=== PATIENT | male | born 1975 | race Caucasian/White ===

== ENCOUNTER 2023-03-06 09:45 | Day surgery (SDC) | payer BC, SELFPAY ==
[2023-03-06 09:53] VITALS: BMI 38.6
[2023-03-06 09:56] VITALS: BP 121/76; PULSE 79; RESP 18; TEMP 37.2; O2SAT 96
[2023-03-06] MEDS: Lactated Ringers 1,000 ML 100 ML IVCONT (10:19)
--- NOTE | 2023-03-06 10:23 | HO.ANESPROP2 ---
Documented by User: Elle Rosales NP 03/05/23 14:56 HPI - Anesthesia Eval Consult details Narrative: 47yo F for Bilateral medial Rectus Eye Muscle Recession PCP cleared [facility] Past Medical History Medical History Anxiety Chronic headache Diplopia Dyslipidemia Herpes labialis HTN (hypertension) [id number] transgender person Scoliosis Urethral stricture Vertigo Surgical History Surgical History (Updated 03/05/23 @ 12:39 by Farrah Vann RN) History of repair of hiatal hernia Social History Social History Patient Tobacco Use Status: Never used Tobacco Use of substances other than those prescribed or required for medical reasons: No Are you DNR?: No Advance Directives: No Advance Directives Information Provided: Yes Meds Allergies Allergy/AdvReac Type Severity Reaction Status Date / Time No Known Allergies Allergy Verified 03/05/23 12:36 Home Medications Medication Instructions Recorded Confirmed Last Taken Type albuterol sulfate 90 mcg/actuation 1 puff inhalation Q6H PRN wheezing 03/05/23 03/05/23 Unknown History aerosol inhaler alprazolam 0.5 mg tablet 0.5 mg PO BID 03/05/23 03/05/23 Unknown History atorvastatin 20 mg tablet 20 mg PO DAILY 03/05/23 03/05/23 Unknown History butalbital 50 mg-acetaminophen 325 1 cap PO Q4H PRN headache 03/05/23 03/05/23 Unknown History mg-caffeine 40 mg-codeine 30 mg cap diltiazem HCl 180 mg 180 mg PO DAILY 03/05/23 03/05/23 Unknown History capsule,extended release 24 hr estradiol valerate 40 mg/mL 8 mg IM QWEEK 03/05/23 03/05/23 Unknown History intramuscular oil insulin syringe-needle U-100 1 mL 03/05/23 03/05/23 Unknown History 25 x 1 (BD Insulin Syringe) lidocaine 5 % topical patch patch topical 03/05/23 Unknown History lidocaine-prilocaine 2.5 %-2.5 % topical Q2H PRN Pain 03/05/23 Unknown History topical cream lisinopril 10 mg tablet 10 mg PO DAILY 03/05/23 03/05/23 Unknown History needle (disp) 18 G 18 gauge x 1 03/05/23 03/05/23 Unknown History (BD Regular [place]vel [place]) omeprazole 40 mg capsule,delayed 40 mg PO BID 03/05/23 03/05/23 Unknown History release phenazopyridine 200 mg tablet 200 mg PO TID 03/05/23 03/05/23 Unknown History semaglutide (weight loss) 0.25 0.25 mg subcut QWEEK 03/05/23 03/05/23 Unknown History mg/0.5 mL subcutaneous pen injector (Wegovy) semaglutide (weight loss) 0.5 0.5 mg subcut QWEEK 03/05/23 03/05/23 Unknown History mg/0.5 mL subcutaneous pen injector (Wegovy) syringe with needle 1 mL 20 gauge 03/05/23 03/05/23 Unknown History x 1 (BD Luer-Joe Syringe) tamsulosin 0.4 mg capsule 0.4 mg PO DAILY 03/05/23 03/05/23 Unknown History valacyclovir 1 gram tablet 2,000 mg PO BID 03/05/23 03/05/23 Unknown History Exam Exam Date and Time: March 05, 2023 1453 Assessment and Plan Assessment Anesthesia Assessment: Chart Reviewed Documented by User: Agata Nguyễn DO 03/06/23 10:25 [facility] Past Medical History Medical History Anxiety Chronic headache Diplopia Dyslipidemia Herpes labialis HTN (hypertension) [id number] transgender person Scoliosis Urethral stricture Vertigo Family History Family history of problems with anesthesia: No Surgical History Surgical History (Updated 03/05/23 @ 12:39 by Farrah Vann RN) History of repair of hiatal hernia History of Problems with Anesthesia: No Social History Social History Patient Tobacco Use Status: Never used Tobacco Use of substances other than those prescribed or required for medical reasons: No Are you DNR?: No Advance Directives: No Advance Directives Information Provided: Yes Meds Allergies Allergy/AdvReac Type Severity Reaction Status Date / Time No Known Allergies Allergy Verified 03/05/23 12:36 Home Medications Medication Instructions Recorded Confirmed Last Taken Type albuterol sulfate 90 mcg/actuation 1 puff inhalation Q6H PRN wheezing 03/05/23 03/05/23 Unknown History aerosol inhaler alprazolam 0.5 mg tablet 0.5 mg PO BID 03/05/23 03/05/23 Unknown History atorvastatin 20 mg tablet 20 mg PO DAILY 03/05/23 03/05/23 Unknown History butalbital 50 mg-acetaminophen 325 1 cap PO Q4H PRN headache 03/05/23 03/05/23 Unknown History mg-caffeine 40 mg-codeine 30 mg cap diltiazem HCl 180 mg 180 mg PO DAILY 03/05/23 03/05/23 Unknown History capsule,extended release 24 hr estradiol valerate 40 mg/mL 8 mg IM QWEEK 03/05/23 03/05/23 Unknown History intramuscular oil insulin syringe-needle U-100 1 mL 03/05/23 03/05/23 Unknown History 25 x 1 (BD Insulin Syringe) lidocaine 5 % topical patch patch topical 03/05/23 Unknown History lidocaine-prilocaine 2.5 %-2.5 % topical Q2H PRN Pain 03/05/23 Unknown History topical cream lisinopril 10 mg tablet 10 mg PO DAILY 03/05/23 03/05/23 Unknown History needle (disp) 18 G 18 gauge x 1 03/05/23 03/05/23 Unknown History (BD Regular [place]vel [place]) omeprazole 40 mg capsule,delayed 40 mg PO BID 03/05/23 03/05/23 Unknown History release phenazopyridine 200 mg tablet 200 mg PO TID 03/05/23 03/05/23 Unknown History semaglutide (weight loss) 0.25 0.25 mg subcut QWEEK 03/05/23 03/05/23 Unknown History mg/0.5 mL subcutaneous pen injector (Wegovy) semaglutide (weight loss) 0.5 0.5 mg subcut QWEEK 03/05/23 03/05/23 Unknown History mg/0.5 mL subcutaneous pen injector (Wegovy) syringe with needle 1 mL 20 gauge 03/05/23 03/05/23 Unknown History x 1 (BD Luer-Joe Syringe) tamsulosin 0.4 mg capsule 0.4 mg PO DAILY 03/05/23 03/05/23 Unknown History valacyclovir 1 gram tablet 2,000 mg PO BID 03/05/23 03/05/23 Unknown History Exam Exam Date and Time: March 06, 2023 1022 Height,Weight and Vital Signs: Height 5 ft 8 in Weight 115.212 kg Vital Signs Temperature 99.0 F 03/06/23 09:56 Pulse Rate 79 03/06/23 09:56 Respiratory Rate 18 03/06/23 09:56 Blood Pressure 121/76 03/06/23 09:56 Pulse Oximetry 96 03/06/23 09:56 Oxygen Delivery Method Room Air 03/06/23 09:56 Temperature 99.0 F 03/06/23 09:56 Pulse Rate 79 03/06/23 09:56 Respiratory Rate 18 03/06/23 09:56 Blood Pressure 121/76 03/06/23 09:56 Pulse Oximetry 96 03/06/23 09:56 Oxygen Delivery Method Room Air 03/06/23 09:56 Airway Mallampati Class: II TM Dist: >3cm Neck ROM: Full Loose/Missing/Broken Teeth: No Heart: S1S2 Lungs: CTAB Assessment and Plan Assessment Anesthesia Assessment: Anesthesia Plan Discussed and Chart Reviewed Final Anesthetic Review Family History of Problems with Anesthesia: No History of Problems with Anesthesia: No NPO: Yes ASA Class: II Final Preanesthetic Review: No Changes in Pt Med Stat, Meds/Allgs Chart Reviewed, Consent Obtained/Reviewed and Anes Risks/Benef Reviewed Patient Risk: Low Procedure Risk: Low Anesthetic Plan Anesthetic Plan: GA and Agree w/ Assess. and Plan Disposition: Standard PACU
[2023-03-06 11:08] VITALS: BP 126/78; PULSE 83; RESP 16; TEMP 36.3; O2SAT 97
[2023-03-06 11:13] VITALS: BP 137/78; PULSE 81; RESP 16; O2SAT 98
--- NOTE | 2023-03-06 11:14 | HO.OPHTHAL ---
Ophthalmology Operative Note Date of Service: 03/06/23 Narrative: Diagnosis esotropia. Procedure bilateral medial rectus recessions of [address] Collado. Anesthesia general. Complications none. The patient was brought to the operating room placed under general anesthesia. The eyes were prepped and draped in the usual sterile ophthalmic fashion. A lid speculum was placed in the right eye and an incision was made down to bare sclera in the inferonasal fornix. The medial rectus muscle was hooked and secured with a double-armed Vicryl suture. The muscle was then disinserted from the globe and reattached to a position 3 mm behind the original insertion using a hang back technique. Conjunctiva was closed with interrupted Vicryl sutures. An identical procedure was then performed on the left eye. The patient was then awoken from general anesthesia and discharged postoperative recovery in good condition.
[2023-03-06 11:18] VITALS: BP 129/80; PULSE 78; RESP 16; O2SAT 99
[2023-03-06 11:23] VITALS: BP 134/76; PULSE 76; RESP 16; O2SAT 99
[2023-03-06] MEDS: Acetaminophen 325 MG TABLET 650 MG PO (11:31)
[2023-03-06 11:37] VITALS: BP 139/86; PULSE 72; RESP 16; TEMP 36.7; O2SAT 99
== END 2023-03-06 12:30 | disposition home or self-care (01) ==
PROVIDERS: PCP Internal Medicine; Visit Provider Ophthalmology
PROC: (CPT 67311; principal; 2023-03-06 11:00)
DX: H53.2 Diplopia (principal); I10 Essential (primary) hypertension; R73.9 Hyperglycemia, unspecified; G43.709 Chronic migraine without aura, not intractable, without status migrainosus; B00.1 Herpesviral vesicular dermatitis; F64.0 Transsexualism; E78.5 Hyperlipidemia, unspecified; E66.01 Morbid (severe) obesity due to excess calories; Z68.39 Body mass index [BMI] 39.0-39.9, adult; H81.10 Benign paroxysmal vertigo, unspecified ear; N35.919 Unspecified urethral stricture, male, unspecified site; F41.1 Generalized anxiety disorder; Z79.899 Other long term (current) drug therapy
CPT/HCPCS: 67311; C1713; J1100; J1885; J2405; J3010